=== PATIENT | male | born 1975 | race Hispanic/Latino ===

== ENCOUNTER 2023-08-31 13:01 | Emergency (ER) | payer OTHER, SELFPAY ==
[2023-08-31] MEDS ORDERED: Ketorolac Tromethamine 30 MG (1 mL) VIAL ONE (13:22)
[2023-08-31] MEDS ORDERED: Lidocaine 4% Patch TD SCH (13:30)
[2023-09-01] MEDS ORDERED: Transdermal Patch Removal TOP SCH (01:30)
== END 2023-08-31 14:30 | disposition home or self-care (01) ==
LOC: ERS 13:01
DX: M54.50 Low back pain, unspecified (principal); I25.2 Old myocardial infarction; X50.0XXA Overexertion from strenuous movement or load, initial encounter; Y93.F2 Activity, caregiving, lifting; Z95.5 Presence of coronary angioplasty implant and graft; Z79.82 Long term (current) use of aspirin; Z79.899 Other long term (current) drug therapy
CPT/HCPCS: 72100; 96372; J1885